=== PATIENT | male | born 1995 | race Two or more races ===

== ENCOUNTER 2023-10-27 09:37 | Emergency (ER) | payer MEDICAID ==
[~2023-10-27] VITALS: Ht 175.3 cm; Wt 72.7 kg
[2023-10-27 09:44] VITALS: BP 136/93; PULSE 88; RESP 16
== END 2023-10-27 10:45 | disposition left against medical advice (07) ==
LOC: EMS 09:38
DX: R51.9 Headache, unspecified (principal); Z53.21 Procedure and treatment not carried out due to patient leaving prior to being seen by health care provider
CPT/HCPCS: 99281; Z7502